=== PATIENT | male | born 1965 | race Caucasian/White ===

== ENCOUNTER 2022-01-22 12:54 | Emergency (ER) | payer SELFPAY ==
[~2022-01-22] VITALS: Ht 182.9 cm; Wt 100.0 kg
[2022-01-22] MEDS ORDERED: KETOROLAC TROMETHAMINE 30 MG/ML VIAL IVP ONE (14:15)
[2022-01-22] MEDS ORDERED: MORPHINE SULFATE 2 MG/ML SYRINGE IVP ONE (14:15)
[2022-01-22] MEDS ORDERED: HYDROmorphone HCL 2 MG/ML SYRINGE IVP ONE ×2 (16:00→22:15)
[2022-01-22] MEDS ORDERED: LORazepam 2 MG/ML VIAL IVP ONE (18:15)
[2022-01-22] MEDS ORDERED: HYDROmorphone HCL 2 MG/ML SYRINGE IM ONE (22:15)
[2022-01-22 22:18] LABS: COVID AG,FIA SOURCE NASOPHARYNGEAL
[2022-01-23 01:00] VITALS: BP 169/85
== END 2022-01-23 06:41 | disposition short-term general hospital (02) ==
LOC: EMS 13:01
DX: S93.325A Dislocation of tarsometatarsal joint of left foot, initial encounter (principal); S82.432A Displaced oblique fracture of shaft of left fibula, initial encounter for closed fracture; S92.342A Displaced fracture of fourth metatarsal bone, left foot, initial encounter for closed fracture; Z20.822 Contact with and (suspected) exposure to COVID-19; F10.20 Alcohol dependence, uncomplicated; V69.9XXA Occupant (driver) (passenger) of heavy transport vehicle injured in unspecified traffic accident, initial encounter; Y93.89 Activity, other specified; Y92.89 Other specified places as the place of occurrence of the external cause; Y99.8 Other external cause status
CPT/HCPCS: 99285; 96374; 29515; 96375; 87426; 73610; 73630; 96376; J1170; J1885; J2060; J2270